=== PATIENT | male | born 1975 | race Caucasian/White ===

== ENCOUNTER 2019-07-04 21:51 | Inpatient (IN) | payer MEDICAID, OTHER ==
[2019-07-04] MEDS ORDERED: SODIUM CHLORIDE 0.9% 1L BAG IV* (23:08)
[2019-07-05] MEDS: PIPER-TAZO 3.375 GM IV (PMX) 100 ML IVPB (01:36)
[2019-07-05] MEDS: KETOROLAC 30 MG INJ IM (01:38)
[2019-07-05] MEDS: SOD CHLORIDE 0.9% IV (01:38)
[2019-07-05] MEDS: INSULIN LISPRO 100 UNIT/ML VIAL SC (01:45)
[2019-07-05] MEDS: SOD CHLORIDE 0.9% 100 ML (02:11)
[2019-07-05] MEDS: IOHEXOL 300MG/ML 150 ML BTL (02:11)
[2019-07-05] MEDS: VANCOMYCIN 1 GM (PMX) 250 ML IVPB (03:07)
[2019-07-05] MEDS: ONDANSETRON 4 MG INJ IV (03:40)
[2019-07-05] MEDS: morphine 2 MG INJ IV ×2 (03:40→09:35)
[2019-07-05] MEDS ORDERED: ONDANSETRON 4 MG INJ IV ×2 (04:30→15:30)
[2019-07-05] MEDS ORDERED: NACL 0.9% 3 ML SYG IV (04:30)
[2019-07-05] MEDS: SOD CHLORIDE 0.9% 1,000 ML IV ×2 (06:43→12:28)
[2019-07-05] MEDS ORDERED: GLUCOSE GEL 15 GRAM TUBE PO ×2 (07:30)
[2019-07-05] MEDS ORDERED: DEXTROSE 50% 50 ML SYRINGE IV ×2 (07:30)
[2019-07-05] MEDS ORDERED: GLUCAGON 1 MG INJ IM (07:30)
[2019-07-05] MEDS: MEROPENEM 500MG/50 ML (PMX) 50 ML IVPB ×2 (09:35→20:09)
[2019-07-05] MEDS: INSULIN ASPART [NOVOLOG] 3 ML PEN SC ×5 (09:45→20:12)
[2019-07-05] MEDS ORDERED: SUCCINYLCHOLINE CHLORIDE 100 MG/5 ML SYG IV (14:30)
[2019-07-05] MEDS ORDERED: GLYCOPYRROLATE 0.4 MG INJ (14:30)
[2019-07-05] MEDS ORDERED: NEOSTIGMINE 3 MG/3 ML SYRINGE (14:30)
[2019-07-05] MEDS ORDERED: ONDANSETRON 4 MG INJ (14:30)
[2019-07-05] MEDS ORDERED: FENTAnyl 50 MCG/ML VIAL (14:30)
[2019-07-05] MEDS ORDERED: PROPOFOL 200 MG INJ (14:30)
[2019-07-05] MEDS ORDERED: MIDAZOLAM 1 MG/ML 2 ML INJ (14:30)
[2019-07-05] MEDS ORDERED: LIDOCAINE 2% (SDV) 5 ML INJ (14:30)
[2019-07-05] MEDS ORDERED: FAMOTIDINE 20 MG INJ (14:31)
[2019-07-05] MEDS: POLYMYXIN/BACITRACIN 1L IRRIG IRR (15:08)
[2019-07-05] MEDS ORDERED: HYDROmorphONE 2 MG/ML SYG (15:13)
[2019-07-05] MEDS ORDERED: KETAMINE (50 MG/ML) 10 ML VIAL (15:29)
[2019-07-05] MEDS ORDERED: KETOROLAC 30 MG INJ (15:29)
[2019-07-05] MEDS ORDERED: FENTAnyl 50 MCG/ML VIAL IV ×2 (15:30)
[2019-07-05] MEDS ORDERED: HYDROmorphONE 1 MG/5 ML IV SYRINGE IV ×2 (15:30)
[2019-07-05] MEDS ORDERED: LABETALOL HCL 20MG INJ IV (15:30)
[2019-07-05] MEDS ORDERED: METOCLOPRAMIDE 10 MG INJ IV (15:30)
[2019-07-05] MEDS ORDERED: OXYCODONE/ACETAMINOPHEN (5/325) TAB PO ×2 (15:30)
[2019-07-05] MEDS: ACETAMINOPHEN 1000MG/100ML IV 100 ML IVPB (17:23)
[2019-07-05] MEDS: INSULIN GLARGINE [LANTus] (100 UNITS/ML) SYG SC (20:13)
[2019-07-06] MEDS: SOD CHLORIDE 0.9% 1,000 ML IV ×2 (02:00→09:28)
[2019-07-06] MEDS: ACCU-CHEK XX ×2 (02:00→05:25)
[2019-07-06] MEDS: morphine 2 MG INJ IV ×3 (02:55→21:55)
[2019-07-06] MEDS: INSULIN ASPART [NOVOLOG] 3 ML PEN SC ×8 (02:56→21:00)
[2019-07-06] MEDS: HYDROCODONE/APAP (5/325) TAB PO ×2 (05:30→13:59)
[2019-07-06] MEDS: MEROPENEM 500MG/50 ML (PMX) 50 ML IVPB ×2 (09:28→20:47)
[2019-07-06] MEDS: DAKINS 0.0125%(1/40) 473 ML SOLUTION TP (13:39)
[2019-07-06] MEDS: POTASSIUM PHOSPHATE 20 MEQ in SOD CHLORIDE 0.9% 250 ML IVPB (15:21)
[2019-07-06] MEDS ORDERED: INSULIN ASPART [NOVOLOG] 3 ML PEN SC (17:55)
[2019-07-06] MEDS ORDERED: INSULIN GLARGINE [LANTus] (100 UNITS/ML) SYG SC (20:00)
[2019-07-06] MEDS: INSULIN GLARGINE [LANTus] (100 UNITS/ML) SYG SC (20:57)
[2019-07-07] MEDS: SOD CHLORIDE 0.9% 1,000 ML IV ×3 (00:41→16:00)
[2019-07-07] MEDS: HYDROCODONE/APAP (5/325) TAB PO ×2 (00:45→18:17)
[2019-07-07] MEDS: ACCU-CHEK XX (02:00)
[2019-07-07] MEDS: INSULIN ASPART [NOVOLOG] 3 ML PEN SC ×7 (09:11→20:35)
[2019-07-07] MEDS: DAKINS 0.0125%(1/40) 473 ML SOLUTION TP (09:12)
[2019-07-07] MEDS: MEROPENEM 500MG/50 ML (PMX) 50 ML IVPB ×2 (09:16→22:14)
[2019-07-07] MEDS: metroNIDAZOLE 500 MG/NS (PMX) 100 ML IVPB ×3 (12:04→23:08)
[2019-07-07] MEDS: morphine 2 MG INJ IV (12:10)
[2019-07-07] MEDS: INSULIN GLARGINE [LANTus] (100 UNITS/ML) SYG SC (20:34)
[2019-07-08] MEDS: SOD CHLORIDE 0.9% 1,000 ML IV (01:05)
[2019-07-08] MEDS: ACCU-CHEK XX (01:41)
[2019-07-08] MEDS: FLUCONAZOLE 200 MG (PMX) 100 ML IVPB (02:30)
[2019-07-08] MEDS: AMPICILLIN/SULB 3 GM/NS (PMX) 100 ML IVPB ×4 (05:07→23:35)
[2019-07-08] MEDS: HYDROCODONE/APAP (5/325) TAB PO ×3 (05:12→23:45)
[2019-07-08] MEDS: INSULIN ASPART [NOVOLOG] 3 ML PEN SC ×7 (08:38→20:32)
[2019-07-08] MEDS: DAKINS 0.0125%(1/40) 473 ML SOLUTION TP (08:39)
[2019-07-08] MEDS: morphine 2 MG INJ IV (11:42)
[2019-07-08] MEDS: SENNA TAB PO ×2 (14:44→20:31)
[2019-07-08] MEDS: INSULIN GLARGINE [LANTus] (100 UNITS/ML) SYG SC (20:31)
[2019-07-09] MEDS: FLUCONAZOLE 200 MG (PMX) 100 ML IVPB (01:15)
[2019-07-09] MEDS: ACCU-CHEK XX (02:00)
[2019-07-09] MEDS: AMPICILLIN/SULB 3 GM/NS (PMX) 100 ML IVPB ×4 (05:17→23:27)
[2019-07-09] MEDS: morphine 2 MG INJ IV (07:41)
[2019-07-09] MEDS: DAKINS 0.0125%(1/40) 473 ML SOLUTION TP (07:44)
[2019-07-09] MEDS: SENNA TAB PO ×2 (08:56→21:00)
[2019-07-09] MEDS: INSULIN ASPART [NOVOLOG] 3 ML PEN SC ×7 (08:59→21:00)
[2019-07-09] MEDS: HYDROCODONE/APAP (5/325) TAB PO (18:38)
[2019-07-09] MEDS: INSULIN GLARGINE [LANTus] (100 UNITS/ML) SYG SC (21:37)
[2019-07-10] MEDS: FLUCONAZOLE 200 MG (PMX) 100 ML IVPB (01:05)
[2019-07-10] MEDS: ACCU-CHEK XX (01:14)
[2019-07-10] MEDS: AMPICILLIN/SULB 3 GM/NS (PMX) 100 ML IVPB ×4 (05:10→23:07)
[2019-07-10] MEDS: HYDROCODONE/APAP (5/325) TAB PO ×2 (05:17→22:44)
[2019-07-10] MEDS: INSULIN ASPART [NOVOLOG] 3 ML PEN SC ×6 (08:49→17:50)
[2019-07-10] MEDS: DAKINS 0.0125%(1/40) 473 ML SOLUTION TP (08:49)
[2019-07-10] MEDS: SENNA TAB PO ×2 (08:49→22:45)
[2019-07-10] MEDS: morphine 2 MG INJ IV ×2 (10:19→17:46)
[2019-07-10] MEDS: POTASSIUM CHLORIDE 20 MEQ POWDER FOR ORAL SOLN PO (11:22)
[2019-07-10] MEDS ORDERED: HYDROGEN PEROXIDE 118 ML (20:09)
[2019-07-10] MEDS ORDERED: FENTAnyl 50 MCG/ML VIAL (20:24)
[2019-07-10] MEDS ORDERED: SUGAMMADEX SODIUM 200 MG/2 ML VIAL IV (21:15)
[2019-07-10] MEDS ORDERED: LIDOCAINE 100 MG SYRINGE (21:15)
[2019-07-10] MEDS ORDERED: PROPOFOL 20 ML (21:15)
[2019-07-10] MEDS ORDERED: SUCCINYLCHOLINE CHLORIDE 100 MG/5 ML SYG IV (21:15)
[2019-07-10] MEDS ORDERED: ROCURONIUM 50 MG INJ (21:15)
[2019-07-10] MEDS: POLYMYXIN/BACITRACIN 1L IRRIG IRR (21:21)
[2019-07-10] MEDS: INSULIN GLARGINE [LANTus] (100 UNITS/ML) SYG SC (22:53)
[2019-07-11] MEDS: ACCU-CHEK XX (00:06)
[2019-07-11] MEDS: FLUCONAZOLE 200 MG (PMX) 100 ML IVPB (00:42)
[2019-07-11] MEDS: AMPICILLIN/SULB 3 GM/NS (PMX) 100 ML IVPB ×4 (05:11→23:10)
[2019-07-11] MEDS: HYDROCODONE/APAP (5/325) TAB PO ×3 (05:11→22:02)
[2019-07-11] MEDS: INSULIN ASPART [NOVOLOG] 3 ML PEN SC ×7 (07:20→21:00)
[2019-07-11] MEDS: SENNA TAB PO ×2 (09:02→20:37)
[2019-07-11] MEDS: morphine 2 MG INJ IV (10:28)
[2019-07-11] MEDS: DAKINS 0.0125%(1/40) 473 ML SOLUTION TP (10:29)
[2019-07-11] MEDS: INSULIN GLARGINE [LANTus] (100 UNITS/ML) SYG SC (20:00)
[2019-07-11] MEDS: GLUCOSE GEL 15 GRAM TUBE BUCCAL (20:21)
[2019-07-11] MEDS: metroNIDAZOLE 500 MG TAB PO (22:01)
[2019-07-12] MEDS: FLUCONAZOLE 200 MG (PMX) 100 ML IVPB (00:27)
[2019-07-12] MEDS: ACCU-CHEK XX (00:39)
[2019-07-12] MEDS: metroNIDAZOLE 500 MG TAB PO ×2 (05:26→13:34)
[2019-07-12] MEDS: AMPICILLIN/SULB 3 GM/NS (PMX) 100 ML IVPB ×4 (05:26→23:38)
[2019-07-12] MEDS: HYDROCODONE/APAP (5/325) TAB PO ×2 (05:27→18:42)
[2019-07-12] MEDS: INSULIN ASPART [NOVOLOG] 3 ML PEN SC ×7 (08:30→21:00)
[2019-07-12] MEDS: SENNA TAB PO ×2 (08:33→20:35)
[2019-07-12] MEDS: morphine 2 MG INJ IV (10:47)
[2019-07-12] MEDS: DAKINS 0.0125%(1/40) 473 ML SOLUTION TP (10:50)
[2019-07-12] MEDS: INSULIN GLARGINE [LANTus] (100 UNITS/ML) SYG SC (20:37)
[2019-07-13] MEDS: FLUCONAZOLE 200 MG (PMX) 100 ML IVPB (00:51)
[2019-07-13] MEDS: ACCU-CHEK XX (02:00)
[2019-07-13] MEDS: AMPICILLIN/SULB 3 GM/NS (PMX) 100 ML IVPB ×4 (06:01→23:36)
[2019-07-13] MEDS: DAKINS 0.0125%(1/40) 473 ML SOLUTION TP (08:42)
[2019-07-13] MEDS: INSULIN ASPART [NOVOLOG] 3 ML PEN SC ×7 (08:43→20:24)
[2019-07-13] MEDS: SENNA TAB PO ×2 (08:43→20:17)
[2019-07-13] MEDS: HYDROCODONE/APAP (5/325) TAB PO (20:17)
[2019-07-13] MEDS: INSULIN GLARGINE [LANTus] (100 UNITS/ML) SYG SC (20:22)
[2019-07-14] MEDS: FLUCONAZOLE 200 MG (PMX) 100 ML IVPB (00:48)
[2019-07-14] MEDS: ACCU-CHEK XX (00:57)
[2019-07-14] MEDS: AMPICILLIN/SULB 3 GM/NS (PMX) 100 ML IVPB ×4 (05:46→23:55)
[2019-07-14] MEDS: DAKINS 0.0125%(1/40) 473 ML SOLUTION TP (08:24)
[2019-07-14] MEDS: SENNA TAB PO ×2 (08:24→21:00)
[2019-07-14] MEDS: INSULIN ASPART [NOVOLOG] 3 ML PEN SC ×7 (08:24→21:00)
[2019-07-14] MEDS: HYDROCODONE/APAP (5/325) TAB PO (18:31)
[2019-07-14] MEDS: INSULIN GLARGINE [LANTus] (100 UNITS/ML) SYG SC (21:27)
[2019-07-15] MEDS: FLUCONAZOLE 200 MG (PMX) 100 ML IVPB (01:09)
[2019-07-15] MEDS: ACCU-CHEK XX (02:00)
[2019-07-15] MEDS: AMPICILLIN/SULB 3 GM/NS (PMX) 100 ML IVPB ×4 (05:03→23:08)
[2019-07-15] MEDS: morphine 2 MG INJ IV (07:39)
[2019-07-15] MEDS: SENNA TAB PO ×2 (08:42→20:04)
[2019-07-15] MEDS: INSULIN ASPART [NOVOLOG] 3 ML PEN SC ×7 (08:44→20:04)
[2019-07-15] MEDS: DAKINS 0.0125%(1/40) 473 ML SOLUTION TP (08:46)
[2019-07-15] MEDS: HYDROCODONE/APAP (5/325) TAB PO (17:55)
[2019-07-15] MEDS: INSULIN GLARGINE [LANTus] (100 UNITS/ML) SYG SC (20:03)
[2019-07-16] MEDS: FLUCONAZOLE 200 MG (PMX) 100 ML IVPB (00:38)
[2019-07-16] MEDS: ACCU-CHEK XX (02:00)
[2019-07-16] MEDS: AMPICILLIN/SULB 3 GM/NS (PMX) 100 ML IVPB ×3 (05:37→18:16)
[2019-07-16] MEDS: INSULIN ASPART [NOVOLOG] 3 ML PEN SC ×7 (08:30→20:34)
[2019-07-16] MEDS: SENNA TAB PO ×2 (08:59→20:33)
[2019-07-16] MEDS: DAKINS 0.0125%(1/40) 473 ML SOLUTION TP (09:00)
[2019-07-16] MEDS: morphine 2 MG INJ IV (12:18)
[2019-07-16] MEDS: HYDROCODONE/APAP (5/325) TAB PO ×2 (18:20→22:58)
[2019-07-16] MEDS: ACETAMINOPHEN 325 MG TAB PO (20:33)
[2019-07-16] MEDS: INSULIN GLARGINE [LANTus] (100 UNITS/ML) SYG SC (20:36)
[2019-07-17] MEDS: AMPICILLIN/SULB 3 GM/NS (PMX) 100 ML IVPB ×5 (00:16→23:45)
[2019-07-17] MEDS: ACCU-CHEK XX (02:00)
[2019-07-17] MEDS: FLUCONAZOLE 200 MG (PMX) 100 ML IVPB (02:35)
[2019-07-17] MEDS: HYDROCODONE/APAP (5/325) TAB PO ×2 (06:34→20:24)
[2019-07-17] MEDS: INSULIN ASPART [NOVOLOG] 3 ML PEN SC ×7 (08:59→20:29)
[2019-07-17] MEDS: SENNA TAB PO ×2 (09:01→20:24)
[2019-07-17] MEDS: morphine 2 MG INJ IV (14:49)
[2019-07-17] MEDS: DAKINS 0.0125%(1/40) 473 ML SOLUTION TP (14:50)
[2019-07-17] MEDS: INSULIN GLARGINE [LANTus] (100 UNITS/ML) SYG SC (20:27)
[2019-07-18] MEDS: ACCU-CHEK XX (02:00)
[2019-07-18] MEDS: AMPICILLIN/SULB 3 GM/NS (PMX) 100 ML IVPB ×3 (05:37→17:47)
[2019-07-18] MEDS: HYDROCODONE/APAP (5/325) TAB PO ×3 (05:39→18:27)
[2019-07-18] MEDS: SENNA TAB PO ×2 (08:35→21:02)
[2019-07-18] MEDS: FLUCONAZOLE 200 MG TAB PO (08:35)
[2019-07-18] MEDS: INSULIN ASPART [NOVOLOG] 3 ML PEN SC ×7 (08:37→21:00)
[2019-07-18] MEDS: morphine 2 MG INJ IV (11:43)
[2019-07-18] MEDS: DAKINS 0.0125%(1/40) 473 ML SOLUTION TP (11:43)
[2019-07-18] MEDS: INSULIN GLARGINE [LANTus] (100 UNITS/ML) SYG SC (21:02)
[2019-07-19] MEDS: AMPICILLIN/SULB 3 GM/NS (PMX) 100 ML IVPB ×4 (00:36→17:31)
[2019-07-19] MEDS: ACCU-CHEK XX (02:00)
[2019-07-19] MEDS: HYDROCODONE/APAP (5/325) TAB PO ×2 (08:15→18:54)
[2019-07-19] MEDS: FLUCONAZOLE 200 MG TAB PO (08:15)
[2019-07-19] MEDS: SENNA TAB PO ×2 (08:15→20:45)
[2019-07-19] MEDS: INSULIN ASPART [NOVOLOG] 3 ML PEN SC ×7 (08:48→21:00)
[2019-07-19] MEDS: morphine 2 MG INJ IV (13:18)
[2019-07-19] MEDS: DAKINS 0.0125%(1/40) 473 ML SOLUTION TP (17:31)
[2019-07-19] MEDS: INSULIN GLARGINE [LANTus] (100 UNITS/ML) SYG SC (20:47)
[2019-07-20] MEDS: AMPICILLIN/SULB 3 GM/NS (PMX) 100 ML IVPB ×4 (01:37→18:20)
[2019-07-20] MEDS: HYDROCODONE/APAP (5/325) TAB PO ×3 (01:40→20:11)
[2019-07-20] MEDS: ACCU-CHEK XX (02:00)
[2019-07-20] MEDS: INSULIN ASPART [NOVOLOG] 3 ML PEN SC ×7 (07:20→21:00)
[2019-07-20] MEDS: SENNA TAB PO ×2 (08:44→20:11)
[2019-07-20] MEDS: FLUCONAZOLE 200 MG TAB PO (08:44)
[2019-07-20] MEDS: DAKINS 0.0125%(1/40) 473 ML SOLUTION TP (08:48)
[2019-07-20] MEDS: morphine 2 MG INJ IV (15:00)
[2019-07-20] MEDS: INSULIN GLARGINE [LANTus] (100 UNITS/ML) SYG SC (21:14)
[2019-07-21] MEDS: AMPICILLIN/SULB 3 GM/NS (PMX) 100 ML IVPB ×5 (00:30→23:34)
[2019-07-21] MEDS: ACCU-CHEK XX ×2 (02:00→23:43)
[2019-07-21] MEDS: HYDROCODONE/APAP (5/325) TAB PO ×2 (06:08→17:57)
[2019-07-21] MEDS: INSULIN ASPART [NOVOLOG] 3 ML PEN SC ×7 (07:20→21:00)
[2019-07-21] MEDS: SENNA TAB PO ×2 (08:42→21:03)
[2019-07-21] MEDS: FLUCONAZOLE 200 MG TAB PO (08:42)
[2019-07-21] MEDS: DAKINS 0.0125%(1/40) 473 ML SOLUTION TP (08:43)
[2019-07-21] MEDS: morphine 2 MG INJ IV (13:58)
[2019-07-21] MEDS: INSULIN GLARGINE [LANTus] (100 UNITS/ML) SYG SC (21:05)
[2019-07-22] MEDS: HYDROCODONE/APAP (5/325) TAB PO ×2 (01:14→16:20)
[2019-07-22] MEDS: AMPICILLIN/SULB 3 GM/NS (PMX) 100 ML IVPB ×3 (05:32→17:37)
[2019-07-22] MEDS: INSULIN ASPART [NOVOLOG] 3 ML PEN SC ×7 (07:20→20:31)
[2019-07-22] MEDS: morphine 2 MG INJ IV (08:12)
[2019-07-22] MEDS: DAKINS 0.0125%(1/40) 473 ML SOLUTION TP (08:32)
[2019-07-22] MEDS: SENNA TAB PO ×2 (08:39→20:31)
[2019-07-22] MEDS: FLUCONAZOLE 200 MG TAB PO (08:39)
[2019-07-22] MEDS: INSULIN GLARGINE [LANTus] (100 UNITS/ML) SYG SC (20:35)
[2019-07-23] MEDS: AMPICILLIN/SULB 3 GM/NS (PMX) 100 ML IVPB ×5 (00:16→23:46)
[2019-07-23] MEDS: ACCU-CHEK XX (01:43)
[2019-07-23] MEDS: INSULIN ASPART [NOVOLOG] 3 ML PEN SC ×7 (07:20→21:00)
[2019-07-23] MEDS: FLUCONAZOLE 200 MG TAB PO (08:29)
[2019-07-23] MEDS: SENNA TAB PO ×2 (08:29→20:46)
[2019-07-23] MEDS: HYDROCODONE/APAP (5/325) TAB PO ×2 (08:38→17:38)
[2019-07-23] MEDS: DAKINS 0.0125%(1/40) 473 ML SOLUTION TP (12:45)
[2019-07-23] MEDS: INSULIN GLARGINE [LANTus] (100 UNITS/ML) SYG SC ×2 (20:00→22:01)
[2019-07-24] MEDS: ACCU-CHEK XX ×2 (01:47→23:52)
[2019-07-24] MEDS: AMPICILLIN/SULB 3 GM/NS (PMX) 100 ML IVPB ×3 (05:30→17:49)
[2019-07-24] MEDS: INSULIN ASPART [NOVOLOG] 3 ML PEN SC ×7 (08:48→20:42)
[2019-07-24] MEDS: SENNA TAB PO ×2 (08:50→21:16)
[2019-07-24] MEDS: DAKINS 0.0125%(1/40) 473 ML SOLUTION TP (08:50)
[2019-07-24] MEDS: FLUCONAZOLE 200 MG TAB PO (08:50)
[2019-07-24] MEDS: HYDROCODONE/APAP (5/325) TAB PO (08:54)
[2019-07-24] MEDS ORDERED: ONDANSETRON 4 MG INJ IV (17:30)
[2019-07-24] MEDS ORDERED: LABETALOL HCL 20MG INJ IV (17:30)
[2019-07-24] MEDS ORDERED: FENTAnyl 50 MCG/ML VIAL IV ×3 (17:30)
[2019-07-24] MEDS ORDERED: DIPHENHYDRAMINE 50 MG INJ IV (17:30)
[2019-07-24] MEDS ORDERED: MEPERIDINE 25 MG INJ IV (17:30)
[2019-07-24] MEDS ORDERED: hydrALAzine 20 MG INJ IV (17:30)
[2019-07-24] MEDS ORDERED: HYDROmorphONE 1 MG/5 ML IV SYRINGE IV ×3 (17:30)
[2019-07-24] MEDS ORDERED: FENTAnyl 50 MCG/ML VIAL (17:34)
[2019-07-24] MEDS ORDERED: ONDANSETRON 4 MG INJ (17:34)
[2019-07-24] MEDS ORDERED: PROPOFOL 20 ML (17:34)
[2019-07-24] MEDS: INSULIN GLARGINE [LANTus] (100 UNITS/ML) SYG SC (20:27)
[2019-07-25] MEDS: AMPICILLIN/SULB 3 GM/NS (PMX) 100 ML IVPB ×5 (00:21→23:30)
[2019-07-25] MEDS: HYDROCODONE/APAP (5/325) TAB PO ×3 (00:22→15:42)
[2019-07-25] MEDS: SENNA TAB PO ×2 (08:48→20:26)
[2019-07-25] MEDS: FLUCONAZOLE 200 MG TAB PO (08:48)
[2019-07-25] MEDS: INSULIN ASPART [NOVOLOG] 3 ML PEN SC ×7 (08:52→21:00)
[2019-07-25] MEDS: DAKINS 0.0125%(1/40) 473 ML SOLUTION TP (08:53)
[2019-07-25] MEDS: morphine 2 MG INJ IV (11:48)
[2019-07-25] MEDS: INSULIN GLARGINE [LANTus] (100 UNITS/ML) SYG SC (20:30)
[2019-07-25] MEDS: ACCU-CHEK XX (23:47)
[2019-07-26] MEDS: AMPICILLIN/SULB 3 GM/NS (PMX) 100 ML IVPB ×3 (05:24→17:47)
[2019-07-26] MEDS: HYDROCODONE/APAP (5/325) TAB PO ×2 (05:29→17:51)
[2019-07-26] MEDS: INSULIN ASPART [NOVOLOG] 3 ML PEN SC ×7 (07:20→21:00)
[2019-07-26] MEDS: SENNA TAB PO ×2 (08:36→20:53)
[2019-07-26] MEDS: FLUCONAZOLE 200 MG TAB PO (08:36)
[2019-07-26] MEDS: morphine 2 MG INJ IV (14:10)
[2019-07-26] MEDS: DAKINS 0.0125%(1/40) 473 ML SOLUTION TP (14:10)
[2019-07-26] MEDS: INSULIN GLARGINE [LANTus] (100 UNITS/ML) SYG SC (20:55)
[2019-07-26] MEDS: CIPROFLOXACIN 200 MG/D5W IVPB 100 ML IVPB (20:58)
[2019-07-27] MEDS: AMPICILLIN/SULB 3 GM/NS (PMX) 100 ML IVPB ×5 (00:59→23:36)
[2019-07-27] MEDS: ACCU-CHEK XX (01:33)
[2019-07-27] MEDS: HYDROCODONE/APAP (5/325) TAB PO ×4 (05:41→18:04)
[2019-07-27] MEDS: FLUCONAZOLE 200 MG TAB PO (08:37)
[2019-07-27] MEDS: CIPROFLOXACIN 200 MG/D5W IVPB 100 ML IVPB ×2 (08:37→21:12)
[2019-07-27] MEDS: SENNA TAB PO ×2 (08:37→21:12)
[2019-07-27] MEDS: DAKINS 0.0125%(1/40) 473 ML SOLUTION TP (08:38)
[2019-07-27] MEDS: INSULIN ASPART [NOVOLOG] 3 ML PEN SC ×7 (08:40→21:00)
[2019-07-27] MEDS: morphine 2 MG INJ IV (13:52)
[2019-07-27] MEDS: INSULIN GLARGINE [LANTus] (100 UNITS/ML) SYG SC (21:18)
[2019-07-28] MEDS: ACCU-CHEK XX (02:00)
[2019-07-28] MEDS: AMPICILLIN/SULB 3 GM/NS (PMX) 100 ML IVPB ×4 (06:05→23:33)
[2019-07-28] MEDS: INSULIN ASPART [NOVOLOG] 3 ML PEN SC ×7 (08:42→20:43)
[2019-07-28] MEDS: FLUCONAZOLE 200 MG TAB PO (08:43)
[2019-07-28] MEDS: SENNA TAB PO ×2 (08:43→20:38)
[2019-07-28] MEDS: HYDROCODONE/APAP (5/325) TAB PO ×2 (08:43→17:58)
[2019-07-28] MEDS: DAKINS 0.0125%(1/40) 473 ML SOLUTION TP (08:45)
[2019-07-28] MEDS: CIPROFLOXACIN 200 MG/D5W IVPB 100 ML IVPB (08:45)
[2019-07-28] MEDS: morphine 2 MG INJ IV (12:05)
[2019-07-28] MEDS: CIPROFLOXACIN 500 MG TAB PO (17:29)
[2019-07-28] MEDS: INSULIN GLARGINE [LANTus] (100 UNITS/ML) SYG SC (20:41)
[2019-07-29] MEDS: HYDROCODONE/APAP (5/325) TAB PO ×4 (00:59→18:11)
[2019-07-29] MEDS: ACCU-CHEK XX (02:00)
[2019-07-29] MEDS: AMPICILLIN/SULB 3 GM/NS (PMX) 100 ML IVPB ×4 (05:08→23:38)
[2019-07-29] MEDS: CIPROFLOXACIN 500 MG TAB PO ×2 (05:08→18:11)
[2019-07-29] MEDS: INSULIN ASPART [NOVOLOG] 3 ML PEN SC ×7 (08:48→21:00)
[2019-07-29] MEDS: FLUCONAZOLE 200 MG TAB PO (08:50)
[2019-07-29] MEDS: DAKINS 0.0125%(1/40) 473 ML SOLUTION TP (08:50)
[2019-07-29] MEDS: SENNA TAB PO ×2 (08:50→20:49)
[2019-07-29] MEDS: morphine 2 MG INJ IV ×2 (14:22→17:27)
[2019-07-29] MEDS: INSULIN GLARGINE [LANTus] (100 UNITS/ML) SYG SC ×2 (20:00→22:03)
[2019-07-30] MEDS: ACCU-CHEK XX (01:21)
[2019-07-30] MEDS: AMPICILLIN/SULB 3 GM/NS (PMX) 100 ML IVPB ×3 (05:51→18:00)
[2019-07-30] MEDS: CIPROFLOXACIN 500 MG TAB PO ×2 (05:51→18:00)
[2019-07-30] MEDS: INSULIN ASPART [NOVOLOG] 3 ML PEN SC ×7 (08:28→21:00)
[2019-07-30] MEDS: SENNA TAB PO ×2 (09:12→20:20)
[2019-07-30] MEDS: FLUCONAZOLE 200 MG TAB PO (09:12)
[2019-07-30] MEDS: DAKINS 0.0125%(1/40) 473 ML SOLUTION TP (09:13)
[2019-07-30] MEDS: HYDROCODONE/APAP (5/325) TAB PO ×2 (09:19→20:20)
[2019-07-30] MEDS: morphine 2 MG INJ IV (15:19)
[2019-07-30] MEDS: INSULIN GLARGINE [LANTus] (100 UNITS/ML) SYG SC (20:26)
[2019-07-31] MEDS: AMPICILLIN/SULB 3 GM/NS (PMX) 100 ML IVPB ×4 (00:01→17:32)
[2019-07-31] MEDS: ACCU-CHEK XX ×2 (02:00→21:05)
[2019-07-31] MEDS: CIPROFLOXACIN 500 MG TAB PO ×2 (05:56→17:32)
[2019-07-31] MEDS: INSULIN ASPART [NOVOLOG] 3 ML PEN SC ×7 (07:20→21:00)
[2019-07-31] MEDS: SENNA TAB PO ×2 (08:38→20:54)
[2019-07-31] MEDS: HYDROCODONE/APAP (5/325) TAB PO ×2 (08:38→17:31)
[2019-07-31] MEDS: FLUCONAZOLE 200 MG TAB PO (08:38)
[2019-07-31] MEDS: DAKINS 0.0125%(1/40) 473 ML SOLUTION TP (08:41)
[2019-07-31] MEDS: morphine 2 MG INJ IV (15:08)
[2019-07-31] MEDS: AMOXICILLIN/CLAV 875 MG TAB PO (20:54)
[2019-07-31] MEDS: INSULIN GLARGINE [LANTus] (100 UNITS/ML) SYG SC (21:03)
[2019-08-01] MEDS: CIPROFLOXACIN 500 MG TAB PO ×2 (05:53→18:00)
[2019-08-01] MEDS: HYDROCODONE/APAP (5/325) TAB PO (05:54)
[2019-08-01] MEDS: INSULIN ASPART [NOVOLOG] 3 ML PEN SC ×7 (07:20→21:00)
[2019-08-01] MEDS: SENNA TAB PO ×2 (08:42→20:50)
[2019-08-01] MEDS: AMOXICILLIN/CLAV 875 MG TAB PO ×2 (08:42→20:50)
[2019-08-01] MEDS: FLUCONAZOLE 200 MG TAB PO (08:42)
[2019-08-01] MEDS: DAKINS 0.0125%(1/40) 473 ML SOLUTION TP (08:46)
[2019-08-01] MEDS: morphine 2 MG INJ IV (15:07)
[2019-08-01] MEDS ORDERED: MEPERIDINE 25 MG INJ IV (17:00)
[2019-08-01] MEDS ORDERED: HYDROmorphONE 1 MG/5 ML IV SYRINGE IV ×2 (17:00)
[2019-08-01] MEDS ORDERED: ONDANSETRON 4 MG INJ IV (17:00)
[2019-08-01] MEDS ORDERED: LIDOCAINE 2% (SDV) 5 ML INJ (17:04)
[2019-08-01] MEDS ORDERED: MIDAZOLAM 1 MG/ML 2 ML INJ (17:04)
[2019-08-01] MEDS ORDERED: PROPOFOL 20 ML (17:04)
[2019-08-01] MEDS ORDERED: FENTAnyl 50 MCG/ML VIAL ×2 (17:05→18:59)
[2019-08-01] MEDS ORDERED: CIPROFLOXACIN 400MG/D5W 200 ML (17:07)
[2019-08-01] MEDS ORDERED: ONDANSETRON 4 MG INJ (17:47)
[2019-08-01] MEDS ORDERED: CEFAZOLIN 1 GM INJ (17:47)
[2019-08-01] MEDS ORDERED: DEXAMETHASONE 4 MG/ML 5 ML INJ (17:47)
[2019-08-01] MEDS ORDERED: PHENYLephrine (100 MCG/ML) 10ML SYG (18:16)
[2019-08-01] MEDS: HYDROmorphONE 1 MG/5 ML IV SYRINGE IV (19:57)
[2019-08-01] MEDS: INSULIN GLARGINE [LANTus] (100 UNITS/ML) SYG SC (20:53)
[2019-08-02] MEDS: ACCU-CHEK XX (02:00)
[2019-08-02] MEDS: HYDROCODONE/APAP (5/325) TAB PO ×3 (02:25→17:22)
[2019-08-02] MEDS: CIPROFLOXACIN 500 MG TAB PO ×2 (05:05→17:24)
[2019-08-02] MEDS: AMOXICILLIN/CLAV 875 MG TAB PO ×2 (08:50→20:50)
[2019-08-02] MEDS: FLUCONAZOLE 200 MG TAB PO (08:50)
[2019-08-02] MEDS: INSULIN ASPART [NOVOLOG] 3 ML PEN SC ×7 (08:50→21:00)
[2019-08-02] MEDS: SENNA TAB PO ×2 (08:50→20:50)
[2019-08-02] MEDS: DAKINS 0.0125%(1/40) 473 ML SOLUTION TP (08:51)
[2019-08-02] MEDS: INSULIN GLARGINE [LANTus] (100 UNITS/ML) SYG SC (20:53)
[2019-08-03] MEDS: HYDROCODONE/APAP (5/325) TAB PO ×3 (00:27→21:33)
[2019-08-03] MEDS: ACCU-CHEK XX (02:00)
[2019-08-03] MEDS: CIPROFLOXACIN 500 MG TAB PO ×2 (05:32→17:36)
[2019-08-03] MEDS: AMOXICILLIN/CLAV 875 MG TAB PO ×2 (08:42→20:54)
[2019-08-03] MEDS: DAKINS 0.0125%(1/40) 473 ML SOLUTION TP (08:42)
[2019-08-03] MEDS: SENNA TAB PO ×2 (08:43→20:54)
[2019-08-03] MEDS: FLUCONAZOLE 200 MG TAB PO (08:43)
[2019-08-03] MEDS: INSULIN ASPART [NOVOLOG] 3 ML PEN SC ×7 (08:46→21:00)
[2019-08-03] MEDS: INSULIN GLARGINE [LANTus] (100 UNITS/ML) SYG SC (21:01)
[2019-08-04] MEDS: ACCU-CHEK XX (02:00)
[2019-08-04] MEDS: HYDROCODONE/APAP (5/325) TAB PO ×3 (03:40→22:58)
[2019-08-04] MEDS: CIPROFLOXACIN 500 MG TAB PO (06:07)
[2019-08-04] MEDS: INSULIN ASPART [NOVOLOG] 3 ML PEN SC ×7 (08:15→21:00)
[2019-08-04] MEDS: SENNA TAB PO ×2 (08:52→21:09)
[2019-08-04] MEDS: AMOXICILLIN/CLAV 875 MG TAB PO (08:52)
[2019-08-04] MEDS: FLUCONAZOLE 200 MG TAB PO (08:52)
[2019-08-04] MEDS: INSULIN GLARGINE [LANTus] (100 UNITS/ML) SYG SC (21:14)
[2019-08-05] MEDS: ACCU-CHEK XX (02:00)
[2019-08-05] MEDS: HYDROCODONE/APAP (5/325) TAB PO (07:01)
[2019-08-05] MEDS: INSULIN ASPART [NOVOLOG] 3 ML PEN SC ×7 (08:30→20:09)
[2019-08-05] MEDS: SENNA TAB PO ×2 (08:54→20:09)
[2019-08-05] MEDS: INSULIN GLARGINE [LANTus] (100 UNITS/ML) SYG SC (20:09)
[2019-08-06] MEDS: ACCU-CHEK XX (02:00)
[2019-08-06] MEDS: INSULIN ASPART [NOVOLOG] 3 ML PEN SC ×7 (07:20→21:00)
[2019-08-06] MEDS: SENNA TAB PO ×2 (08:47→21:42)
[2019-08-06] MEDS: HYDROCODONE/APAP (5/325) TAB PO ×2 (08:50→17:59)
[2019-08-06] MEDS: INSULIN GLARGINE [LANTus] (100 UNITS/ML) SYG SC (21:49)
[2019-08-07] MEDS: ACCU-CHEK XX (02:00)
[2019-08-07] MEDS: SENNA TAB PO ×2 (09:00→20:01)
[2019-08-07] MEDS: INSULIN ASPART [NOVOLOG] 3 ML PEN SC ×7 (09:05→20:05)
[2019-08-07] MEDS: HYDROCODONE/APAP (5/325) TAB PO ×2 (09:07→18:11)
[2019-08-07] MEDS: metFORMIN 500 MG TAB PO ×2 (13:01→18:06)
[2019-08-07] MEDS: INSULIN GLARGINE [LANTus] (100 UNITS/ML) SYG SC (20:07)
[2019-08-08] MEDS: ACCU-CHEK XX (02:40)
[2019-08-08] MEDS: metFORMIN 500 MG TAB PO (08:50)
[2019-08-08] MEDS: SENNA TAB PO (08:50)
[2019-08-08] MEDS: INSULIN ASPART [NOVOLOG] 3 ML PEN SC ×4 (08:51→12:49)
[2019-08-08] MEDS: HYDROCODONE/APAP (5/325) TAB PO (13:27)
== END 2019-08-08 13:45 | disposition home or self-care (01) | DRG 853 ==
LOC: FTE 21:51 → MS1 07-05 03:34
PROC: 0HBAXZZ Excision of Inguinal Skin, External Approach (ICD-10-PCS; 2019-07-05 13:30)
PROC: 0H99X0Z Drainage of Perineum Skin with Drainage Device, External Approach (ICD-10-PCS; principal; 2019-07-05 14:36)
PROC: 0KBM0ZZ Excision of Perineum Muscle, Open Approach (ICD-10-PCS; 2019-07-05 14:36)
PROC: 0HBAXZZ Excision of Inguinal Skin, External Approach (ICD-10-PCS; 2019-07-05 14:36)
PROC: 0HBAXZZ Excision of Inguinal Skin, External Approach (ICD-10-PCS; 2019-07-05 14:36)
PROC: 0HBAXZZ Excision of Inguinal Skin, External Approach (ICD-10-PCS; 2019-07-05 14:36)
PROC: 0HBAXZZ Excision of Inguinal Skin, External Approach (ICD-10-PCS; 2019-07-05 14:36)
PROC: 0VQ5XZZ Repair Scrotum, External Approach (ICD-10-PCS; 2019-07-05 14:36)
DX: A41.9 Sepsis, unspecified organism (principal); E11.10 Type 2 diabetes mellitus with ketoacidosis without coma; L02.214 Cutaneous abscess of groin; N39.0 Urinary tract infection, site not specified; E87.1 Hypo-osmolality and hyponatremia; N49.3 Fournier gangrene; B95.62 Methicillin resistant Staphylococcus aureus infection as the cause of diseases classified elsewhere; R16.0 Hepatomegaly, not elsewhere classified; D17.79 Benign lipomatous neoplasm of other sites; E86.0 Dehydration; Z91.14 Patient's other noncompliance with medication regimen
CPT/HCPCS: 36415; 71045; 74177; 76870; 80048; 80053; 80061; 81001; 82962; 83036; 83605; 83735; 84100; 84484; 85025; 85610; 85730; 86703; 87040-91; 87070; 87075; 87086; 87102; 87116; 87205; 88300; 88304; 93005; 93971; 96365; 96367; 96372; 97161; 99285-25